=== PATIENT | female | born 1960 | race African-American/Black ===

== ENCOUNTER 2021-09-14 09:12 | Emergency (ER) | payer MEDICAID ==
[~2021-09-14] VITALS: Ht 165.1 cm; Wt 91.0 kg
[2021-09-14] MEDS ORDERED: KETOROLAC 30MG/ML VIAL IM ONE (10:45)
[2021-09-14] MEDS ORDERED: CYCLOBENZAPRINE 10MG TABLET PO ONE (10:45)
[2021-09-14 10:56] VITALS: BP 117/71
[2021-09-14 11:25] LABS: CLARITY URINE CLEAR (CLEAR); COLOR URINE YELLOW (YELLOW); KETONES URINE TRACE (NEGATIVE); LEUKOCYTE ESTERASE URINE NEGATIVE (NEGATIVE); NITRITE URINE NEGATIVE (NEGATIVE); OCCULT BLOOD URINE NEGATIVE (NEGATIVE); PH URINE 5.5 (4.5-8.0); PROTEIN URINE NEGATIVE (NEGATIVE); UROBILINOGEN URINE 0.2 E.U./dL (0.2-1.0)
[2021-09-14] MEDS ORDERED: CYCL10TA21 MT (11:33)
[2021-09-14] MEDS ORDERED: NAPR-1176 MT (11:33)
== END 2021-09-14 11:54 | disposition home or self-care (01) ==
LOC: ER 09:40
DX: M54.50 Low back pain, unspecified (principal)
CPT/HCPCS: 81003; 96372; 99283; J1885

== ENCOUNTER 2023-09-17 03:34 | Emergency (ER) | payer MEDICAID, OTHER ==
[~2023-09-17] VITALS: Ht 157.5 cm; Wt 65.0 kg
[~2023-09-17 03:34] MED LIST: CYCL10TA21 MT; NAPR-1176 MT
[2023-09-17 03:35] VITALS: O2SAT 98
[2023-09-17 04:07] VITALS: TEMP 98.4
[2023-09-17] MEDS: ACETAMINOPHEN 325MG TABLET PO ONE (04:07)
[2023-09-17] MEDS: AMLODIPINE 5MG TABLET PO ONE (04:07)
[2023-09-17] MEDS ORDERED: AMLO2.5T2 MT (05:10)
[2023-09-17 05:15] VITALS: BP 140/73; PULSE 80; RESP 14
== END 2023-09-17 05:15 | disposition home or self-care (01) ==
LOC: ER 03:34
DX: I10 Essential (primary) hypertension (principal); F17.200 Nicotine dependence, unspecified, uncomplicated
CPT/HCPCS: 87070; 87430; 99283